=== PATIENT | female | born 1945 | race Caucasian/White ===

== ENCOUNTER 2016-06-07 10:20 | Outpatient (CLI) | payer MEDICARE, OTHER | END 2016-06-07 10:21 | disposition home or self-care (01) | DX: E10.9 Type 1 diabetes mellitus without complications (principal) ==

== ENCOUNTER 2016-09-23 09:35 | Outpatient (CLI) | payer MEDICARE, OTHER ==
[2016-09-23 21:10] LABS: HEMOGLOBIN A1C 0.75 g/dL
== END 2016-09-23 09:36 | disposition home or self-care (01) ==
LOC: LAB.F 09:35
PROVIDERS: ATTEND Nurse Practitioner
DX: E10.9 Type 1 diabetes mellitus without complications (principal)
CPT/HCPCS: 36415; 83036

== ENCOUNTER 2016-12-03 09:06 | Outpatient (CLI) | payer MEDICARE, OTHER ==
[2016-12-03 19:25] LABS: HEMOGLOBIN A1C 0.83 g/dL
== END 2016-12-03 09:07 | disposition home or self-care (01) ==
LOC: LAB.F 09:06
PROVIDERS: ATTEND Nurse Practitioner
DX: E10.9 Type 1 diabetes mellitus without complications (principal)
CPT/HCPCS: 36415; 83036

== ENCOUNTER 2017-06-30 08:13 | Outpatient (CLI) | payer MEDICARE, OTHER ==
[2017-06-30 12:17] LABS: CREATININE,URINE 86.9 mg/dL; MICROALBUM/CREATININE RATIO,UR 5.8 ug/mg (<30.0); MICROALBUMIN,URINE 0.5 mg/dL (0-300.0)
[2017-06-30 12:19] LABS: BUN - BLOOD UREA NITROGEN 10 mg/dL (6-20); CALCIUM 9.5 mg/dL (8.5-10.3); CARBON DIOXIDE - CO2 27 mmol/L (21-32); CHLORIDE 99 mmol/L (101-111); CHOL/HDL RATIO 2.7 (<4.4); CHOLESTEROL 221 mg/dL; CREATININE 0.6 mg/dL (0.4-1.0); GFR - MDRD 98 (>89); GLUCOSE 126 mg/dL (70-100); HDL CHOLESTEROL 83 mg/dL; LDL CHOLESTEROL,CALCULATED 129 mg/dL; LDL/HDL RATIO 1.6 (<4.4); SODIUM 133 mmol/L (135-145); VLDL CHOLESTEROL 9 mg/dL
[2017-06-30 12:28] LABS: HB2 TOTAL 15.2 g/dL; HEMOGLOBIN A1C 0.82 g/dL; HEMOGLOBIN A1C % 7.1 % (4.6-6.2)
== END 2017-06-30 08:14 | disposition home or self-care (01) ==
LOC: LAB.F 08:13
PROVIDERS: ATTEND Nurse Practitioner
DX: E10.649 Type 1 diabetes mellitus with hypoglycemia without coma (principal)
CPT/HCPCS: 36415; 80048; 80061; 82043; 82570; 83036; 83721

== ENCOUNTER 2017-09-30 07:50 | Outpatient (CLI) | payer MEDICARE, OTHER ==
[2017-09-30 10:52] LABS: CHOL/HDL RATIO 2.9 (<4.4); CHOLESTEROL 247 mg/dL; HDL CHOLESTEROL 86 mg/dL; LDL CHOLESTEROL,CALCULATED 149 mg/dL; LDL/HDL RATIO 1.7 (<4.4); VLDL CHOLESTEROL 12 mg/dL
[2017-09-30 11:27] LABS: HEMOGLOBIN A1C 0.82 g/dL; HEMOGLOBIN A1C % 7.2 % (4.6-6.2)
== END 2017-09-30 07:51 | disposition home or self-care (01) ==
LOC: LAB.F 07:50
PROVIDERS: ATTEND Nurse Practitioner
DX: E10.649 Type 1 diabetes mellitus with hypoglycemia without coma (principal); E78.5 Hyperlipidemia, unspecified
CPT/HCPCS: 36415; 80061; 83036; 83721

== ENCOUNTER 2017-11-07 08:24 | Outpatient (CLI) | payer MEDICARE, OTHER ==
--- NOTE | 2017-11-19 07:59 | Mammography Report ---
Procedure Date: 11/07/2017 Accession Number: [id number] / [id number] Procedure: SHELL - Screening Mammo Dig Bilat CPT Code: FULL RESULT: EXAM: Screening Mammo Dig Bilat DATE: 11/07/2017 9:23 AM CLINICAL HISTORY: 72-year-old female presents for screening. TECHNIQUE: Bilateral CC and MLO views were obtained. COMPARISON: None FINDINGS: The breasts demonstrate heterogeneously dense fibroglandular parenchyma bilaterally. Typically benign coarse, round, and vascular calcifications are seen bilaterally. No suspicious masses, clustered microcalcifications, or regions of architectural distortion are identified. IMPRESSION: Benign findings RECOMMENDATION: Routine annual screening unless otherwise clinically indicated. BIRADS CATEGORY 2: Benign findings STANDARD QUALIFYING STATEMENTS: 1. This examination was reviewed with the aid of Computer-Aided Detection (CAD). 2. A negative or benign imaging report should not delay biopsy if clinically suspicious findings are present. Consider surgical consultation if warrented. More than 5% of cancers are not identified by imaging. 3. Dense breasts may obscure an underlying neoplasm.
== END 2017-11-07 08:25 | disposition home or self-care (01) ==
LOC: DI 08:24
PROVIDERS: ATTEND Registered Nurse
DX: Z12.31 Encounter for screening mammogram for malignant neoplasm of breast (principal)
CPT/HCPCS: 77067

== ENCOUNTER 2017-11-11 13:45 | Outpatient (CLI) | payer MEDICARE, OTHER ==
--- NOTE | 2017-11-11 15:55 | DEXA Report ---
Procedure Date: 11/11/2017 Accession Number: [id number] / [id number] Procedure: DEX - Dexa Spine and/or Hip CPT Code: FULL RESULT: EXAM: Dexa Spine and/or Hip DATE: 11/11/2017 2:01 PM CLINICAL HISTORY: OSTEOPENIA TECHNIQUE: Dual energy x-ray absorptiometry (DXA) was performed on a [employer] System. Regions measured are the AP Spine, femoral neck, and if needed forearm. COMPARISON: None. In accordance with the International Society for Clinical Densitometry (ISCD) guidelines, data from previous exams may be reanalyzed using current recommendations and techniques. This is done to allow a more accurate basis for comparison with the current study. FINDINGS: The data for the lumbar spine is as follows: BMD (g/cm/cm) T-SCORE Z-SCORE REGION L1 0.907 -1.9 -0.1 L2 1.019 -1.5 0.3 L3 1.164 -0.3 1.5 L4 1.169 -0.3 1.5 TOTAL 1.071 -0.9 0.9 NOTE: All evaluable vertebrae are used for classification The data for the hip is as follows: BMD (g/cm/cm) T-SCORE Z-SCORE REGION Neck 0.736 -2.2 -0.3 TOTAL 0.813 -1.5 0.1 NOTE: The femoral neck or total proximal femur, whichever is lowest, is used for classification. IMPRESSION: THE WHO CLASSIFICATION BASED ON THE INTERNATIONAL REFERENCE STANDARD IS OSTEOPENIA. THE FRACTURE RISK IS INCREASED. RECOMMENDATION: Patients with diagnosis of osteoporosis or osteopenia should have regular bone mineral density assessment. For those eligible for Medicare, routine testing is allowed once every 2 years. Testing frequency can be increased for patients who have rapidly progressing disease or for those who are receiving medical therapy to restore bone mass. COMMENT: World Health Organization (WHO) definitions for osteoporosis and osteopenia: NORMAL BMD: T-score at -1.0 or higher, fracture risk is low OSTEOPENIA BMD: T-score between -1.0 and -2.5, fracture risk is increased. OSTEOPOROSIS BMD: T-score at -2.5 or lower, fracture risk is high. National Osteoporosis Foundation recommends: 1. Obtain adequate dietary calcium (at least 1200 mg per day) and vitamin D (400-800 international units per day). 2. Participate, as appropriate, in regular weightbearing and muscle-strengthening exercise. 3. Avoid tobacco use and reduce alcohol and caffeine intake. 4. For more detailed information see the website at www.NOF.org.
== END 2017-11-11 23:59 ==
LOC: DI 13:45
PROVIDERS: ATTEND Registered Nurse
DX: M85.88 Other specified disorders of bone density and structure, other site (principal)
CPT/HCPCS: 77080

== ENCOUNTER 2018-02-13 08:17 | Outpatient (CLI) | payer MEDICARE, OTHER ==
[2018-02-13 11:36] LABS: HB2 TOTAL 14.5 g/dL; HEMOGLOBIN A1C 0.85 g/dL; HEMOGLOBIN A1C % 7.5 % (4.6-6.2)
== END 2018-02-13 08:18 | disposition home or self-care (01) ==
LOC: LAB.F 08:17
PROVIDERS: ATTEND Nurse Practitioner
DX: E10.69 Type 1 diabetes mellitus with other specified complication (principal); E78.2 Mixed hyperlipidemia
CPT/HCPCS: 36415; 83036

== ENCOUNTER 2018-05-26 08:00 | Outpatient (CLI) | payer MEDICARE, OTHER ==
[2018-05-26 18:32] LABS: HB2 TOTAL 14.4 g/dL; HEMOGLOBIN A1C 0.74 g/dL; HEMOGLOBIN A1C % 6.9 % (4.6-6.2)
[2018-05-26 18:36] LABS: BUN - BLOOD UREA NITROGEN 6 mg/dL (6-20); CALCIUM 9.5 mg/dL (8.5-10.3); CARBON DIOXIDE - CO2 30 mmol/L (21-32); CHLORIDE 94 mmol/L (101-111); CHOL/HDL RATIO 2.3 (<4.4); CHOLESTEROL 187 mg/dL; CREATININE 0.5 mg/dL (0.4-1.0); GFR - MDRD 121 (>89); GLUCOSE 141 mg/dL (70-100); HDL CHOLESTEROL 83 mg/dL; LDL CHOLESTEROL,CALCULATED 90 mg/dL; LDL/HDL RATIO 1.1 (<4.4); SODIUM 132 mmol/L (135-145); VLDL CHOLESTEROL 14 mg/dL
[2018-05-26 20:19] LABS: CREATININE,URINE 46.3 mg/dL; MICROALBUM/CREATININE RATIO,UR 17.3 ug/mg (<30.0); MICROALBUMIN,URINE 0.8 mg/dL (0-300.0)
== END 2018-05-26 23:59 | disposition home or self-care (01) ==
LOC: LAB.F 08:00
PROVIDERS: ATTEND Registered Nurse
DX: E10.69 Type 1 diabetes mellitus with other specified complication (principal); E78.5 Hyperlipidemia, unspecified
CPT/HCPCS: 36415; 80048; 80061; 82043; 82570; 83036; 83721

== ENCOUNTER 2018-05-26 09:17 | Outpatient (CLI) | payer MEDICARE, OTHER | END 2018-05-26 09:18 | disposition home or self-care (01) | LOC: LAB.F 09:17 | PROVIDERS: ATTEND Nurse Practitioner | DX: E10.69 Type 1 diabetes mellitus with other specified complication (principal); E78.5 Hyperlipidemia, unspecified | CPT/HCPCS: 36415; 80048; 80061; 82043; 82570; 83036; 83721 ==

== ENCOUNTER 2018-11-19 08:08 | Outpatient (CLI) | payer MEDICARE, OTHER ==
[2018-11-19 10:56] LABS: CREATININE,URINE 64.2 mg/dL; MICROALBUM/CREATININE RATIO,UR 7.8 ug/mg (<30.0); MICROALBUMIN,URINE 0.5 mg/dL (0-300.0)
[2018-11-19 10:58] LABS: CHOL/HDL RATIO 3.4 (<4.4); CHOLESTEROL 254 mg/dL; HDL CHOLESTEROL 75 mg/dL; LDL CHOLESTEROL,CALCULATED 156 mg/dL; LDL/HDL RATIO 2.1 (<4.4); VLDL CHOLESTEROL 23 mg/dL
[2018-11-19 11:26] LABS: HB2 TOTAL 15.4 g/dL; HEMOGLOBIN A1C 0.86 g/dL; HEMOGLOBIN A1C % 7.3 % (4.6-6.2)
== END 2018-11-19 08:09 | disposition home or self-care (01) ==
LOC: LAB.S 08:08
PROVIDERS: ATTEND Nurse Practitioner
DX: E10.649 Type 1 diabetes mellitus with hypoglycemia without coma (principal)
CPT/HCPCS: 36415; 80061; 82043; 82570; 83036; 83721

== ENCOUNTER 2018-11-19 08:30 | Outpatient (CLI) | payer MEDICARE, OTHER ==
--- NOTE | 2018-11-20 08:22 | Mammography Report ---
Reason: ENCOUNTER FOR SCREENING MAMMOGRAM FOR MALIGNANT NE Procedure Date: 11/19/2018 Accession Number: [id number] / [id number] Procedure: MGS - Screening Mammo Dig Bilat CPT Code: FULL RESULT: EXAM: Screening Mammo Dig Bilat DATE: 11/19/2018 8:52 AM CLINICAL HISTORY: Screening encounter. No reported risk factors. TECHNIQUE: (B) - Bilateral CC and MLO views were obtained. COMPARISON: 09/30/2014 through 11/07/2011. PARENCHYMAL PATTERN: (D) - The breast(s) demonstrate(s) heterogeneously dense fibroglandular parenchyma. FINDINGS: There are typically benign coarse calcifications and typically benign vascular calcifications. There are no suspicious masses, calcifications, or areas of distortion. IMPRESSION: Benign findings. BI-RADS category 2. RECOMMENDATION: (ANNUAL) - Recommend routine annual screening mammography. BI-RADS CATEGORY: (2) - Benign Findings. STANDARD QUALIFYING STATEMENTS: 1. This examination was reviewed with the aid of Computer-Aided Detection (CAD). 2. A negative or benign imaging report should not preclude biopsy if clinically suspicious findings are present. 3. Dense breasts may obscure an underlying neoplasm. 4. This examination was reviewed without the aid of 3D breast imaging (tomosynthesis).
== END 2018-11-19 08:31 | disposition home or self-care (01) ==
LOC: DI.S 08:30
PROVIDERS: ATTEND Registered Nurse
DX: Z12.31 Encounter for screening mammogram for malignant neoplasm of breast (principal)
CPT/HCPCS: 77067

== ENCOUNTER 2019-03-30 07:52 | Outpatient (CLI) | payer MEDICARE, OTHER ==
[2019-03-30 17:30] LABS: HB2 TOTAL 13.7 g/dL; HEMOGLOBIN A1C 0.68 g/dL; HEMOGLOBIN A1C % 6.7 % (4.6-6.2)
== END 2019-03-30 07:53 | disposition home or self-care (01) ==
LOC: LAB.S 07:52
PROVIDERS: ATTEND Nurse Practitioner
DX: E10.69 Type 1 diabetes mellitus with other specified complication (principal); E78.5 Hyperlipidemia, unspecified
CPT/HCPCS: 36415; 83036

== ENCOUNTER 2019-11-16 07:44 | Outpatient (CLI) | payer MEDICARE, OTHER ==
[2019-11-16 16:04] LABS: CREATININE,URINE 97.6 mg/dL; MICROALBUMIN,URINE 3.9 mg/dL (0-300.0)
[2019-11-16 16:06] LABS: BUN - BLOOD UREA NITROGEN 7 mg/dL (6-20); CALCIUM 9.5 mg/dL (8.5-10.3); CARBON DIOXIDE - CO2 31 mmol/L (21-32); CHLORIDE 91 mmol/L (101-111); CHOL/HDL RATIO 3.5 (<4.4); CHOLESTEROL 219 mg/dL; CREATININE 0.7 mg/dL (0.4-1.0); GLUCOSE 263 mg/dL (70-100); HDL CHOLESTEROL 63 mg/dL; LDL CHOLESTEROL,CALCULATED 142 mg/dL; LDL/HDL RATIO 2.3 (<4.4); SODIUM 132 mmol/L (135-145); VLDL CHOLESTEROL 14 mg/dL
[2019-11-16 16:34] LABS: HB2 TOTAL 14.1 g/dL; HEMOGLOBIN A1C 0.69 g/dL; HEMOGLOBIN A1C % 6.6 % (4.6-6.2)
== END 2019-11-16 07:45 | disposition home or self-care (01) ==
LOC: LAB.S 07:44
PROVIDERS: ATTEND Nurse Practitioner
DX: E10.65 Type 1 diabetes mellitus with hyperglycemia (principal)
CPT/HCPCS: 36415; 80048; 80061; 82043; 82570; 83036; 83721

== ENCOUNTER 2020-02-29 08:48 | Outpatient (CLI) | payer MEDICARE, OTHER ==
[2020-02-29 17:17] LABS: HEMOGLOBIN A1c% 7.5 % (4.27-6.07)
== END 2020-02-29 08:49 | disposition home or self-care (01) ==
LOC: LAB.S 08:48
PROVIDERS: ATTEND Nurse Practitioner
DX: E10.22 Type 1 diabetes mellitus with diabetic chronic kidney disease (principal); N18.30 Chronic kidney disease, stage 3 unspecified
CPT/HCPCS: 36415; 83036

== ENCOUNTER 2020-06-20 08:28 | Outpatient (CLI) | payer MEDICARE, OTHER ==
[2020-06-20 15:28] LABS: BUN - BLOOD UREA NITROGEN 6 mg/dL (6-20); CARBON DIOXIDE - CO2 29 mmol/L (21-32); CHLORIDE 94 mmol/L (101-111); CHOL/HDL RATIO 3.3 (<4.4); CHOLESTEROL 264 mg/dL; CREATININE 0.6 mg/dL (0.4-1.0); GLUCOSE 185 mg/dL (70-100); HDL CHOLESTEROL 79 mg/dL; LDL CHOLESTEROL,CALCULATED 171 mg/dL; LDL/HDL RATIO 2.2 (<4.4); VLDL CHOLESTEROL 14 mg/dL
[2020-06-20 15:29] LABS: CREATININE,URINE 140.1 mg/dL; MICROALBUM/CREATININE RATIO,UR 11.4 ug/mg (<30.0); MICROALBUMIN,URINE 1.6 mg/dL (0-300.0)
[2020-06-20 19:57] LABS: HEMOGLOBIN A1c% 7.4 % (4.27-6.07)
== END 2020-06-20 08:29 | disposition home or self-care (01) ==
LOC: LAB.S 08:28
PROVIDERS: ATTEND Nurse Practitioner
DX: E10.65 Type 1 diabetes mellitus with hyperglycemia (principal)
CPT/HCPCS: 36415; 80048; 80061; 82043; 82570; 83036; 83721

== ENCOUNTER 2020-10-03 07:25 | Outpatient (CLI) | payer MEDICARE, OTHER ==
[2020-10-03 19:51] LABS: ESTIMATED AVERAGE GLUCOSE 163 mg/dL (70-100); HEMOGLOBIN A1c% 7.3 % (4.27-6.07)
== END 2020-10-03 07:26 | disposition home or self-care (01) ==
LOC: LAB.S 07:25
PROVIDERS: ATTEND Nurse Practitioner
DX: E10.65 Type 1 diabetes mellitus with hyperglycemia (principal)
CPT/HCPCS: 36415; 83036

== ENCOUNTER 2021-01-09 07:02 | Outpatient (CLI) | payer MEDICARE, OTHER ==
[2021-01-09 15:09] LABS: CHOL/HDL RATIO 2.9 (<4.4); CHOLESTEROL 226 mg/dL; HDL CHOLESTEROL 78 mg/dL; LDL CHOLESTEROL,CALCULATED 130 mg/dL; LDL/HDL RATIO 1.7 (<4.4); TRIGLYCERIDES 88 mg/dL; VLDL CHOLESTEROL 18 mg/dL
[2021-01-09 20:24] LABS: ESTIMATED AVERAGE GLUCOSE 180 mg/dL (70-100); HEMOGLOBIN A1c% 7.9 % (4.27-6.07)
== END 2021-01-09 07:03 | disposition home or self-care (01) ==
LOC: LAB.S 07:02
PROVIDERS: ATTEND Nurse Practitioner
DX: E10.65 Type 1 diabetes mellitus with hyperglycemia (principal)
CPT/HCPCS: 36415; 80061; 83036; 83721

== ENCOUNTER 2021-04-09 08:31 | Outpatient (CLI) | payer MEDICARE, OTHER ==
[2021-04-09 15:31] LABS: CREATININE,URINE 146.9 mg/dL; MICROALBUM/CREATININE RATIO,UR 116.4 ug/mg (<30.0); MICROALBUMIN,URINE 17.1 mg/dL (0-300.0)
[2021-04-09 15:32] LABS: BUN - BLOOD UREA NITROGEN 7 mg/dL (6-20); CALCIUM 9.5 mg/dL (8.5-10.3); CARBON DIOXIDE - CO2 30 mmol/L (21-32); CHLORIDE 93 mmol/L (101-111); CHOL/HDL RATIO 2.6 (<4.4); CHOLESTEROL 216 mg/dL; CREATININE 0.6 mg/dL (0.4-1.0); GFR - MDRD 97 (>89); GLUCOSE 177 mg/dL (70-100); HDL CHOLESTEROL 82 mg/dL; LDL CHOLESTEROL,CALCULATED 118 mg/dL; LDL/HDL RATIO 1.4 (<4.4); POTASSIUM 4.1 mmol/L (3.5-5.0); SODIUM 131 mmol/L (135-145); TRIGLYCERIDES 79 mg/dL; VLDL CHOLESTEROL 16 mg/dL
[2021-04-09 18:31] LABS: ESTIMATED AVERAGE GLUCOSE 169 mg/dL (70-100); HEMOGLOBIN A1c% 7.5 % (4.27-6.07)
== END 2021-04-09 08:32 | disposition home or self-care (01) ==
LOC: LAB.S 08:31
PROVIDERS: ATTEND Nurse Practitioner
DX: E10.65 Type 1 diabetes mellitus with hyperglycemia (principal); E78.2 Mixed hyperlipidemia
CPT/HCPCS: 36415; 80048; 80061; 82043; 82570; 83036; 83721

== ENCOUNTER 2021-07-24 16:16 | Outpatient (CLI) | payer MEDICARE, OTHER ==
[2021-07-24 20:19] LABS: CALCIUM 9.6 mg/dL (8.5-10.3); CREATININE 0.6 mg/dL (0.4-1.0)
[2021-07-24 20:29] LABS: CREATININE,URINE 36.9 mg/dL; MICROALBUM/CREATININE RATIO,UR 21.7 ug/mg (<30.0); MICROALBUMIN,URINE 0.8 mg/dL (0-300.0)
[2021-07-24 20:35] LABS: ESTIMATED AVERAGE GLUCOSE 174 mg/dL (70-100); HEMOGLOBIN A1c% 7.7 % (4.27-6.07)
== END 2021-07-24 16:17 | disposition home or self-care (01) ==
LOC: LAB.S 16:16
PROVIDERS: ATTEND Nurse Practitioner
DX: E13.65 Other specified diabetes mellitus with hyperglycemia (principal)
CPT/HCPCS: 36415; 80048; 82043; 82570; 83036; 84443

== ENCOUNTER 2021-12-03 07:07 | Outpatient (CLI) | payer MEDICARE, OTHER ==
[2021-12-03 14:59] LABS: CHOL/HDL RATIO 2.7 (<4.4); CHOLESTEROL 189 mg/dL; HDL CHOLESTEROL 71 mg/dL; LDL CHOLESTEROL,CALCULATED 106 mg/dL; LDL/HDL RATIO 1.5 (<4.4); TRIGLYCERIDES 59 mg/dL; VLDL CHOLESTEROL 12 mg/dL
[2021-12-03 20:23] LABS: ESTIMATED AVERAGE GLUCOSE 180 mg/dL (70-100); HEMOGLOBIN A1c% 7.9 % (4.27-6.07)
== END 2021-12-03 07:08 | disposition home or self-care (01) ==
LOC: LAB.S 07:07
PROVIDERS: ATTEND Nurse Practitioner
DX: E13.65 Other specified diabetes mellitus with hyperglycemia (principal)
CPT/HCPCS: 36415; 80061; 83036; 83721

== ENCOUNTER 2022-02-27 07:26 | Outpatient (CLI) | payer MEDICARE, OTHER ==
[2022-02-27 19:56] LABS: ESTIMATED AVERAGE GLUCOSE 169 mg/dL (70-100); HEMOGLOBIN A1c% 7.5 % (4.27-6.07)
== END 2022-02-27 07:27 | disposition home or self-care (01) ==
LOC: LAB.S 07:26
PROVIDERS: ATTEND Nurse Practitioner
DX: E10.65 Type 1 diabetes mellitus with hyperglycemia (principal)
CPT/HCPCS: 36415; 83036

== ENCOUNTER 2022-06-07 07:29 | Outpatient (CLI) | payer MEDICARE, OTHER ==
[2022-06-07 14:28] LABS: CREATININE,URINE 121.9 mg/dL; MICROALBUM/CREATININE RATIO,UR 10.7 ug/mg (<30.0); MICROALBUMIN,URINE 1.3 mg/dL (0-300.0)
[2022-06-07 15:57] LABS: BUN - BLOOD UREA NITROGEN 8 mg/dL (6-20); CALCIUM 9.6 mg/dL (8.5-10.3); CARBON DIOXIDE - CO2 29 mmol/L (21-32); CHLORIDE 95 mmol/L (101-111); CHOLESTEROL 258 mg/dL; CREATININE 0.6 mg/dL (0.4-1.0); GFR - MDRD 97 (>89); GLUCOSE 155 mg/dL (70-100); HDL CHOLESTEROL 64 mg/dL; LDL CHOLESTEROL,CALCULATED 169 mg/dL; LDL/HDL RATIO 2.6 (<4.4); POTASSIUM 4.3 mmol/L (3.5-5.0); SODIUM 133 mmol/L (135-145); TRIGLYCERIDES 127 mg/dL; VLDL CHOLESTEROL 25 mg/dL
[2022-06-07 21:16] LABS: ESTIMATED AVERAGE GLUCOSE 169 mg/dL (70-100); HEMOGLOBIN A1c% 7.5 % (4.27-6.07)
== END 2022-06-07 07:30 | disposition home or self-care (01) ==
LOC: LAB.S 07:29
PROVIDERS: ATTEND Nurse Practitioner
DX: E10.65 Type 1 diabetes mellitus with hyperglycemia (principal); E78.2 Mixed hyperlipidemia
CPT/HCPCS: 36415; 80048; 80061; 82043; 82570; 83036; 83721

== ENCOUNTER 2022-09-26 07:27 | Outpatient (CLI) | payer MEDICARE, OTHER ==
[2022-09-26 20:22] LABS: ESTIMATED AVERAGE GLUCOSE 169 mg/dL (70-100); HEMOGLOBIN A1c% 7.5 % (4.27-6.07)
== END 2022-09-26 07:28 | disposition home or self-care (01) ==
LOC: LAB.S 07:27
PROVIDERS: ATTEND Nurse Practitioner
DX: E10.65 Type 1 diabetes mellitus with hyperglycemia (principal)
CPT/HCPCS: 36415; 83036

== ENCOUNTER 2022-12-02 09:22 | Emergency (ER) | payer MEDICARE, OTHER ==
[2022-12-02 11:00] LABS: BASOPHILS # (AUTO) 0.1 10^3/uL (0.0-0.1); BASOPHILS % (AUTO) 0.7 %; EOSINOPHILS # (AUTO) 0.3 10^3/uL (0.0-0.7); EOSINOPHILS % (AUTO) 3.4 %; HCT - HEMATOCRIT 36.6 % (37.0-47.0); LYMPHOCYTES % (AUTO) 12.5 %; MEAN CORPUSCULAR HEMOGLOBIN 33.1 pg (27.0-31.0); MEAN CORPUSCULAR HGB CONC 35.5 g/dL (32.0-36.0); MEAN CORPUSCULAR VOLUME 93.1 fL (81.0-99.0); MEAN PLATELET VOLUME 9.2 fL (7.9-10.8); MONOCYTES # (AUTO) 1.5 10^3/uL (0.0-1.0); MONOCYTES % (AUTO) 19.2 %; NEUTROPHILS # (AUTO) 4.9 10^3/uL (1.5-6.6); NEUTROPHILS % (AUTO) 63.5 %; PLT - PLATELET COUNT 288 10^3/uL (130-450); RED BLOOD COUNT 3.93 10^6/uL (4.20-5.40); RED CELL DISTRIBUTION WIDTH 12.2 % (12.0-15.0); WHITE BLOOD COUNT 7.7 x10^3/uL (4.8-10.8)
[2022-12-02 11:12] VITALS: BP 158/85
[2022-12-02 11:22] LABS: ALBUMIN 4.3 g/dL (3.2-5.5); ALBUMIN/GLOBULIN RATIO 1.2 (1.0-2.2); BILIRUBIN,TOTAL 0.9 mg/dL (0.2-1.0); CALCIUM 9.8 mg/dL (8.5-10.3); CREATININE 1.3 mg/dL (0.6-1.3); POTASSIUM 2.7 mmol/L (3.5-4.5); TOTAL PROTEIN 7.8 g/dL (6.4-8.9)
[2022-12-02 11:31] LABS: BILIRUBIN,URINE NEGATIVE (NEGATIVE); GLUCOSE, URINE (UA) NEGATIVE (NEGATIVE); KETONES,URINE (UA) TRACE mg/dL (NEGATIVE); LEUKOCYTE ESTERASE, URINE SMALL (NEGATIVE); NITRITE,URINE NEGATIVE (NEGATIVE); OCCULT BLOOD,URINE NEGATIVE (NEGATIVE); PROTEIN,URINE 30 mg/dL (NEGATIVE); UROBILINOGEN,URINE 0.2 (NORMAL) E.U./dL (NORMAL)
[2022-12-02 11:58] LABS: CLARITY,URINE CLEAR (CLEAR); WBC,URINE >25 /HPF (0-5)
[2022-12-02 11:59] LABS: BACTERIA,URINE Few /HPF (None Seen); RBC,URINE 0-5 /HPF (0-5); SQUAMOUS EPITHELIAL CELL,UR FEW Squamous (<= Few)
--- NOTE | 2022-12-02 12:26 | ED Physician Documentation ---
History of Present Illness - Stated complaint Stated Complaint: FATIGUE, GEN WEAKNESS,SOA - Chief complaint Chief Complaint: General - Additonal information Additional information: 77-year-old female presents emergency department for evaluation of generalized fatigue, diarrhea and shortness of air. She does have a longstanding history of glaucoma for which she takes many eyedrops. About 5 to 6 weeks ago her gandy dancer put her on Diamox to help control her glaucoma and immediately she began having diarrhea each day. She stopped taking the Diamox on 29 November and states that since then the diarrhea has essentially resolved. Her fatigue has improved but she occasionally finds herself short of air. She has no lower leg swelling. Denies any chest pain. No orthopnea. Denies any history of hypertension, coronary artery disease or heart failure. Non-smoker. Review of Systems Constitutional: denies: Fever, Chills Nose: reports: Reviewed and negative Cardiac: reports: Reviewed and negative Respiratory: reports: Dyspnea. 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 HEENT: Cataracts, Tonsil/Adenoidectomy - Present Medications Home Medications: Ambulatory Orders Medication Instructions Recorded Confirmed Dorzolamide 2% Ophth Drops 1 drop EACHEYE BID 03/26/15 12/02/22 [Trusopt 2% Ophth Drops] Brimonidine 0.2% Ophth Drops 75 drops EACHEYE DAILY 12/02/22 12/02/22 [Alphagan P 0.2% Ophth Drops] Ezetimibe [Zetia] 10 mg PO DAILY 12/02/22 12/02/22 Ketorolac 0.45% Ophth Drops 10 drops EACHEYE DAILY 12/02/22 12/02/22 [Acuvail] Latanoprost 0.005% Ophth Drops 1 drops EACHEYE DAILY 12/02/22 12/02/22 [Xalatan Ophth Drops] acetaZOLAMIDE ER [Diamox ER] 500 mg PO DAILY 12/02/22 12/02/22 - Allergies Allergies/Adverse Reactions: Allergies Allergy/AdvReac Type Severity Reaction Status Date / Time Sulfa (Sulfonamide Allergy Hives Verified 03/26/15 12:46 Antibiotics) - Social History Does the pt smoke?: No Smoking Status: Never smoker Does the pt drink ETOH?: No Does the pt have substance abuse?: No - Immunizations Immunizations are current?: Yes PD ED PE NORMAL - General General: Alert and oriented X 3, No acute distress, Well developed/nourished - HEENT HEENT: Atraumatic, Moist mucous membranes - Neck Neck: Supple, no meningeal sign - Cardiac Cardiac: RRR, No murmur - Respiratory Respiratory: No respiratory distress, Clear bilaterally - Abdomen Abdomen: Normal bowel sounds, Soft, Non tender - Back Back: No CVA TTP - Derm Derm: Normal color, Warm and dry, No rash - Extremities Extremities: No deformity - Neuro Neuro: Alert and oriented X 3, clinical courier 2-12 intact Eye Opening: Spontaneous Motor: Obeys Commands Verbal: Oriented GCS Score: 15 - Psych Psych: Normal mood Results - Vitals Vitals: Vital Signs - 24 hr 12/02/22 12/02/22 09:33 11:02 Temperature 36.3 C L 36.7 C Heart Rate 89 110 H Respiratory 14 18 Rate Blood Pressure 117/71 158/85 H O2 Saturation 99 100 Oxygen O2 Source Room air - EKG (time done) 1221 EKG releavant findings:: EKG personally interpreted by author of this note. Relevant findings are: Rate: Rate (enter#) (74) Rhythm: NSR [place]: Anterior hemiblock Intervals: Normal VA. No: Prolonged QT QRS: Normal Ischemia: Normal ST segments Compare to prior EKG: Old EKG unavailable Computer interpretation: Agree with computer - Labs Labs: Laboratory Tests 12/02/22 12/02/22 12/02/22 10:56 10:56 11:20 WBC 7.7 RBC 3.93 L Hgb 13.0 Hct 36.6 L MCV 93.1 MCH 33.1 H MCHC 35.5 RDW 12.2 Plt Count 288 MPV 9.2 Neut # (Auto) 4.9 Lymph # (Auto) 1.0 L [place] # (Auto) 1.5 H Eos # (Auto) 0.3 Baso # (Auto) 0.1 Absolute Nucleated RBC 0.00 Nucleated RBC % 0.0 Sodium 133 L Potassium 2.7 L Chloride 107 Carbon Dioxide 17 L Anion Gap 9.0 BUN 18 Creatinine 1.3 Estimated GFR (MDRD) 40 L Glucose 244 H Calcium 9.8 Total Bilirubin 0.9 AST 32 ALT 35 Alkaline Phosphatase 71 B-Natriuretic Peptide Total Protein 7.8 Albumin 4.3 Globulin 3.5 Albumin/Globulin Ratio 1.2 Lipase 20 Urine Color DARK YELLOW Urine Clarity CLEAR Urine pH 6.0 Ur Specific [place] 1.020 Urine Protein 30 H Urine Glucose (UA) NEGATIVE Urine Ketones TRACE Urine Occult Blood NEGATIVE Urine Nitrite NEGATIVE Urine Bilirubin NEGATIVE Urine Urobilinogen 0.2 (NORMAL) Ur Leukocyte Esterase SMALL H Urine RBC 0-5 Urine WBC >25 H Ur Squamous Epith Cells FEW Squamous Urine Bacteria Few Ur Microscopic Review INDICATED Urine Culture Comments INDICATED 12/02/22 11:45 WBC RBC Hgb Hct MCV MCH MCHC RDW Plt Count MPV Neut # (Auto) Lymph # (Auto) [place] # (Auto) Eos # (Auto) Baso # (Auto) Absolute Nucleated RBC Nucleated RBC % Sodium Potassium Chloride Carbon Dioxide Anion Gap BUN Creatinine Estimated GFR (MDRD) Glucose Calcium Total Bilirubin AST ALT Alkaline Phosphatase B-Natriuretic Peptide 88 Total Protein Albumin Globulin Albumin/Globulin Ratio Lipase Urine Color Urine Clarity Urine pH Ur Specific [place] Urine Protein Urine Glucose (UA) Urine Ketones Urine Occult Blood Urine Nitrite Urine Bilirubin Urine Urobilinogen Ur Leukocyte Esterase Urine RBC Urine WBC Ur Squamous Epith Cells Urine Bacteria Ur Microscopic Review Urine Culture Comments - Rads (name of study) cxr Relevant Findings:: EMP independent interpretation of test (no acute cardiopulmonary process) PD Medical Decision Making - ED course Complexity details: reviewed results, re-evaluated patient, d/w patient ED course: 77-year-old female presents emergency department for evaluation of fatigue and some occasional shortness of breath. For much the last month she had had diarrhea each day when she was taking Diamox for glaucoma. She stopped the Diamox 3 days ago and the diarrhea has resolved. She also reports her fatigue is resolving but occasionally she she finds a catching her breath or feel somewhat short of air. No chest pain. No exertional dyspnea or orthopnea. No leg swelling, cough or fevers. On exam she appears remarkably well. Room air saturations 100%. She is modestly hypertensive 150/80. Her EKG is a sinus rhythm without ischemic findings. I did obtain CBC and electrolytes and per my interpretation she has a normal hemoglobin without leukocytosis. Chemistry reveals a mildly low sodium at 133 and a potassium of 2.7. This is likely due to GI loss. Now that her diarrhea has resolved I would expect the potassium to improve. Blood sugar was mildly elevated 244. She does have a known history of type 1 diabetes and is on insulin. Her urinalysis suggested infection with small amount of leukocyte esterase and more than 25 WBCs. Culture is pending. I discussed with patient the UA findings and she has no dysuria urgency frequency lower abdominal pain or fevers. As such we will defer treatment for UTI. She is advised to follow closely with PCP. Would benefit from an outpatient echocardiogram. The usual emergent return precautions for worsening symptoms was discussed Departure - Departure Disposition: Home, Self Care Clinical Impression: Shortness of breath, History of glaucoma Condition: Serious Record reviewed to determine appropriate education?: Yes Instructions: ED Dyspnea Shortness of Breath Comments: Lucila you are seen today in the emergency department because for about a month you have been having diarrhea with use of Diamox. After stopping Diamox the diarrhea improved. Is important you continue to follow closely with your gandy dancer to determine other ways to manage her glaucoma. Your labs today in the emergency department were all rather reassuring. Chest x-ray did not show any signs of pneumonia, heart failure or pleural effusion. Your EKG did not show any signs of a heart attack. Your urine did suggest an infection however as you do not have any symptoms of a urinary tract infection I think it is okay to defer treatment at this time unless you begin to develop lower abdominal pain, urinary urgency, frequency or have any fevers. Do recommend you follow close with your primary care provider. You may benefit from outpatient follow-up or consideration of an echocardiogram. Return to the ER if you find that you are having chest pain, severe shortness of breath specially with exertion or develop any lower extremity swelling or edema. Forms: PCP List
--- NOTE | 2022-12-02 12:27 | XRAY Report ---
PROCEDURE: Chest 1 View X-Ray INDICATIONS: chest pain TECHNIQUE: One view of the chest was acquired. COMPARISON: None. FINDINGS: Surgical changes and devices: None. Lungs and pleura: No pleural effusions or pneumothorax. Lungs are clear. Mediastinum: Mediastinal contours appear normal. Heart size is normal. Bones and chest wall: No suspicious bony lesions. Overlying soft tissues appear unremarkable. IMPRESSION: No acute cardiopulmonary process. Reviewed by: Sunita Monson MD on 12/02/2022 12:26 PM PDT Approved by: Sunita Monson MD on 12/02/2022 12:26 PM PDT Station ID: [id number]
--- NOTE | 2022-12-03 15:28 | ED Physician Documentation ---
ED Addendum - Addendum Addendum: 12/03/22 15:25 Seen by myself yesterday for diarrhea and general fatigue after being on Diamox for a month. Labs were all essentially normal though the UA suggested infection. The patient was asymptomatic. At the the time of yesterday's visit we deferred treatment. However the culture has subsequently grown back greater than 100 K CFU of E. coli. I will start the patient on Macrobid. I suspect this will be sensitive. Nursing staff tasked with notifying pharmacy.
== END 2022-12-02 12:47 | disposition home or self-care (01) ==
LOC: ED 09:22
DX: R06.02 Shortness of breath (principal); H40.9 Unspecified glaucoma
CPT/HCPCS: 36415; 80053; 81001; 81003; 83690; 83880; 85025; 87086; 87181; 93005; 99283; 99284

== ENCOUNTER 2023-08-28 08:00 | Outpatient (CLI) | payer MEDICARE, OTHER ==
--- NOTE | 2023-08-28 16:44 | XRAY Report ---
PROCEDURE: Foot 3+V LT INDICATIONS: LEFT FOOT/ANKLE PAIN TECHNIQUE: 3 views of the foot were acquired. COMPARISON: None. FINDINGS: Bones: No fractures or dislocations. No suspicious bony lesions. Soft tissues: No tibiotalar joint effusion. Achilles tendon appears normal. Vascular calcification s. Dorsal midfoot swelling. IMPRESSION: No acute bony abnormality. Dorsal midfoot swelling. Reviewed by: Arnold Sheffield MD on 08/28/2023 4:42 PM PDT Approved by: Arnold Sheffield MD on 08/28/2023 4:42 PM PDT Station ID: [id number]
--- NOTE | 2023-08-28 16:57 | XRAY Report ---
PROCEDURE: Ankle 3+V LT INDICATIONS: LEFT FOOT/ANKLE PAIN TECHNIQUE: 3 views of the ankle were acquired. COMPARISON: None. FINDINGS: Bones: No fractures or dislocations. Ankle mortise is normally aligned. No suspicious bony lesions . Plantar and dorsal calcaneal enthesophytes. Soft tissues: No tibiotalar joint effusion. Achilles tendon appears normal. Vascular calcification s and venous phleboliths. IMPRESSION: No acute bony abnormality. Plantar and dorsal calcaneal enthesophytes. Reviewed by: Arnold Sheffield MD on 08/28/2023 4:55 PM PDT Approved by: Arnold Sheffield MD on 08/28/2023 4:55 PM PDT Station ID: [id number]
== END 2023-08-28 23:59 | disposition home or self-care (01) ==
LOC: DI.S 08:00
PROVIDERS: ATTEND Registered Nurse
DX: R22.42 Localized swelling, mass and lump, left lower limb (principal); M77.52 Other enthesopathy of left foot and ankle; M79.672 Pain in left foot; M25.572 Pain in left ankle and joints of left foot

== ENCOUNTER 2023-09-02 09:04 | Outpatient (CLI) | payer MEDICARE, OTHER ==
--- NOTE | 2023-09-02 20:43 | XRAY Report ---
PROCEDURE: Ankle 3+V LT INDICATIONS: LEFT ANKLE JOINT PAIN TECHNIQUE: 3 views of the ankle were acquired. COMPARISON: Left ankle radiographs 08/28/2023. Left foot radiographs 08/28/2023. FINDINGS: Bones: No fractures or dislocations. No periosteal reaction. Ankle mortise is normally aligned. No suspicious bony lesions. Small calcaneal spurs. Soft tissues: No tibiotalar joint effusion. Achilles tendon appears normal. Benign soft tissue or vascular calcifications at the dooley. IMPRESSION: No fracture identified. Reviewed by: Jase Jordan MD on 09/02/2023 8:42 PM PDT Approved by: Jase Jordan MD on 09/02/2023 8:42 PM PDT Station ID: [id number]
== END 2023-09-02 09:05 | disposition home or self-care (01) ==
LOC: DI 09:04
PROVIDERS: ATTEND Orthopaedic Surgery
DX: M25.572 Pain in left ankle and joints of left foot (principal)